=== PATIENT | female | born 1955 | race Caucasian/White ===

== ENCOUNTER 2019-01-27 12:07 | Day surgery (SDC) | payer OTHER ==
[~2019-01-27] VITALS: Ht 162.6 cm; Wt 74.9 kg
[~2019-01-27 12:07] MED LIST: CHOLESTEROL MED; METFORMIN; VITAMIN C; VITAMIN D
[2019-01-27 13:02] VITALS: Ht 162.6 cm; Wt 74.9 kg
[2019-01-27 13:06] VITALS: BP 135/69; PULSE 61; RESP 16
[2019-01-27] MEDS ORDERED: LIDOCAINE 2% (SDV) 5 ML INJ ONE (13:32)
[2019-01-27] MEDS ORDERED: PROPOFOL 40 ML ONE (13:32)
--- NOTE | 2019-01-27 13:36 | PREAC ---
Date/Time of Note Date/Time of Note DATE: 01/27/19 TIME: 13:34 Anesthesia Eval and Record Evaluation Time Pre-Procedure Interview DATE: 01/27/19 TIME: 13:34 Age 63 Sex female NPO: 8 hrs Preoperative diagnosis screening Planned procedure colonoscopy Past Medical History Past Medical History: Includes Cardio: Dyslipidemia Endo: Diabetes Surgery & Anesthesia Issues No known issue Meds Anticoagulation: No Beta Nydia within 24 hr: No Reason Beta Nydia not given: Pt. not on B-Nydia Reported Medications [Cholesterol Med] No Conflict Check 01/27/19 [Vitamin D] No Conflict Check 01/27/19 [Vitamin C] No Conflict Check 01/27/19 [Metformin] No Conflict Check 01/27/19 Meds reviewed: Yes Allergies Coded Allergies: No Known Allergy (Unverified , 01/27/19) Allergies Reviewed: Yes Labs/Studies Labs Reviewed: Reviewed by anesthesiologist test: N/A Pre-procedure Exam Last vitals Vital Signs Date Temp Pulse Resp B/P (MAP) Pulse Ox O2 O2 Flow FiO2 Time Delivery Rate 01/27/19 98.6 61 16 135/69 100 Room Air 13:06 (91) Airway: Adequate mouth opening, Adequate thyromental dist Mallampati: Mallampati II Teeth: Normal Lung: Normal Heart: Normal ASA Physical Status ASA physical status: 2 Emergency: None Planned Anesthetic General/MAC: MAC Pre-operative Attestations Prior to commencing anesthesia and surgery, the patient was re-evaluated, there was verification of: *The patient's identity *The results of appropriate recent lab work and preoperative vital signs *The above evaluation not changing prior to induction *Anesthetic plan, risk benefits, alternative and complications discussed with patient/family; questions answered; patient/family understands, accepts and wishes to proceed. CUATE HARO Jan 27, 2019 13:36
--- NOTE | 2019-01-27 14:05 | PAC ---
Date/Time of Note Date/Time of Note DATE: 01/27/19 TIME: 13:58 Post-Anesthesia Notes Post-Anesthesia Note Last documented vital signs Vital Signs Date Temp Pulse Resp B/P (MAP) Pulse Ox O2 O2 Flow FiO2 Time Delivery Rate 01/27/19 98.6 98 61 62 16 18 135/69 100 100 Room 13:06 135 (91) 95/6 Air face 6 5 mask 6L Activity: WNL Respiratory function: WNL Cardiovascular function: WNL Mental status: Baseline Pain reasonably controlled: Yes Hydration appropriate: Yes Nausea/Vomiting absent: Yes CUATE HARO Jan 27, 2019 14:05
== END 2019-01-27 15:17 | disposition home or self-care (01) ==
LOC: GIL 12:07
PROVIDERS: ATTEND Internal Medicine
DX: Z12.11 Encounter for screening for malignant neoplasm of colon (principal); K64.8 Other hemorrhoids; K57.32 Diverticulitis of large intestine without perforation or abscess without bleeding; E11.9 Type 2 diabetes mellitus without complications; M19.90 Unspecified osteoarthritis, unspecified site; Z79.84 Long term (current) use of oral hypoglycemic drugs
CPT/HCPCS: 82962